=== PATIENT | male | born 1945 | race African-American/Black ===

== ENCOUNTER 2017-03-22 18:00 | Outpatient (CLI) | END 2017-03-22 18:01 | disposition short-term general hospital (02) | LOC: AMBL 18:00 | PROVIDERS: ATTEND Internal Medicine Geriatric Medicine | DX: S79.922A Unspecified injury of left thigh, initial encounter (principal); W18.30XA Fall on same level, unspecified, initial encounter; Y93.54 Activity, bowling ==